=== PATIENT | female | born 1985 | race American Indian/Alaskan Native ===

== ENCOUNTER 2018-08-14 13:01 | Emergency (ER) | payer MEDICAID ==
[2018-08-14 13:45] VITALS: BP 119/75
--- NOTE | 2018-08-14 13:46 | Event Note ---
ED Screening Note Date of service: 08/14/18 Time: 13:43 ED Screening Note: This is a 33 y.o. F. that presents to the ER with vaginal discharge x 1 day. This initial assessment/diagnostic orders/clinical plan/treatment(s) is/are subject to change based on patients health status, clinical progression and re- assessment by fellow clinical providers in the ED. Further treatment and workup at subsequent clinical providers discretion. Patient/guardian urged not to elope from the ED as their condition may be serious if not clinically assessed and managed. Initial orders include: ACC for pelvic exam UA, wet prep, & GC
[2018-08-14 14:22] LABS: Bacteria,Urine 1+ /HPF (Negative); Bilirubin,Urine NEG (Negative); Blood,Urine NEG (Negative); Color,Urine Yellow (Yellow); HCG Qualitative,Urine Negative (Negative); Mucus,Urine FEW /HPF; Protein,Urine <15 mg/dL mg/dL (Negative); Urobilinogen,Urine < 2.0 mg/dL (<2.0)
== END 2018-08-14 14:46 | disposition left against medical advice (07) ==
LOC: ED 13:01
DX: N89.8 Other specified noninflammatory disorders of vagina (principal)
CPT/HCPCS: 81001; 81025; 87086; 99283

== ENCOUNTER 2021-08-30 08:26 | Outpatient (CLI) | payer MEDICAID ==
--- NOTE | 2021-08-30 10:55 | Vascular Lab Report ---
DUPLEX DOPPLER LOWER EXTREMITY VEINS, LEFT INDICATION / CLINICAL INFORMATION: R60.9 EDEMA,UNSPECIFIED. TECHNIQUE: Duplex doppler imaging was performed through the veins of the left lower extremity using v enous compression and other maneuvers. COMPARISON: None available. FINDINGS: LEFT COMMON FEMORAL VEIN: Negative. LEFT FEMORAL VEIN: Negative. LEFT POPLITEAL VEIN: Negative. LEFT CALF VEINS: Negative. ADDITIONAL FINDINGS: None. IMPRESSION: 1. No sonographic evidence for DVT in the left lower extremity. Signer Name: Dany Valle DO Signed: 08/30/2021 10:51 AM Workstation Name: [id number]
== END 2021-08-30 08:27 | disposition home or self-care (01) ==
LOC: VAS 08:26
PROVIDERS: ATTEND Internal Medicine
DX: R60.9 Edema, unspecified (principal)

== ENCOUNTER 2021-09-17 09:16 | Outpatient (CLI) | payer MEDICAID ==
[2021-09-17 12:41] LABS: Basophils % (Auto) 0.5 % (0.0-1.8); Eosinophils # (Auto) 0.1 K/mm3 (0.0-0.4); Eosinophils % (Auto) 1.9 % (0.0-4.3); Hematocrit 34.8 % (30.3-42.9); Hemoglobin 11.4 gm/dl (10.1-14.3); Lymphocytes # (Auto) 1.2 K/mm3 (1.2-5.4); Lymphocytes % (Auto) 22.1 % (13.4-35.0); Mean Corpuscular HGB Conc 33 % (30-34); Mean Corpuscular Volume 86 fl (79-97); Monocytes # (Auto) 0.5 K/mm3 (0.0-0.8); Monocytes % (Auto) 9.2 % (0.0-7.3); Platelet Count 306 K/mm3 (140-440); Red Blood Count 4.03 M/mm3 (3.65-5.03)
[2021-09-17 12:51] LABS: Alanine Aminotransferase 10 units/L (7-56); Albumin 4.1 g/dL (3.9-5); Iron 49 ug/dL (37-170); Total Iron Binding Capacity 271 mcg/dL (250-450)
[2021-09-17 13:05] LABS: Bilirubin,Direct < 0.2 mg/dL (0-0.2)
== END 2021-09-17 09:17 | disposition home or self-care (01) ==
LOC: LABHHL 09:16
PROVIDERS: ATTEND Internal Medicine
DX: D57.3 Sickle-cell trait (principal); R94.5 Abnormal results of liver function studies
CPT/HCPCS: 36415; 80076; 82728; 83550; 85025